=== PATIENT | female | born 1975 | race Caucasian/White ===

== ENCOUNTER 2019-05-04 08:59 | Day surgery (SDC) | payer BC, MEDICAID ==
[~2019-05-04] VITALS: Ht 165.1 cm; Wt 71.3 kg
[2019-05-04 09:44] VITALS: Ht 165.1 cm; Wt 71.3 kg
[2019-05-04] MEDS ORDERED: INHALER (09:49)
[2019-05-04] MEDS ORDERED: IBUPROFEN (09:49)
[2019-05-04 10:01] VITALS: BP 138/73; RESP 27
--- NOTE | 2019-05-04 10:02 | PREAC ---
Date/Time of Note Date/Time of Note DATE: 05/04/19 TIME: 10:00 Anesthesia Eval and Record Evaluation Time Pre-Procedure Interview DATE: 05/04/19 TIME: 10:00 Age 44 Sex female NPO: 8 hrs Preoperative diagnosis Abdominal Pain, bleeding Planned procedure EGD, Colonoscopy Past Medical History Past Medical History: Includes Pulm: Asthma Surgery & Anesthesia Issues No known issue Meds Anticoagulation: No Beta Libby within 24 hr: No Reason Beta Libby not given: Pt. not on B-Libby Reported Medications [Ibuprofen] No Conflict Check 05/04/19 [Inhaler] No Conflict Check 05/04/19 Meds reviewed: Yes Allergies Coded Allergies: Penicillins (Verified Allergy, Severe, SHORTNESS OF BREATH, SWOLLEN EYES, 10/07/11) Allergies Reviewed: Yes Labs/Studies Labs Reviewed: Reviewed by anesthesiologist test: N/A Studies: ECG (N/A), CXR (n/a) Pre-procedure Exam Airway: Adequate mouth opening, Adequate thyromental dist Mallampati: Mallampati II Teeth: Normal Lung: Normal Heart: Normal ASA Physical Status ASA physical status: 2 Emergency: None Planned Anesthetic General/MAC: MAC Planned Pain Management Parenteral pain med Pre-operative Attestations Prior to commencing anesthesia and surgery, the patient was re-evaluated, there was verification of: *The patient's identity *The results of appropriate recent lab work and preoperative vital signs *The above evaluation not changing prior to induction *Anesthetic plan, risk benefits, alternative and complications discussed with patient/family; questions answered; patient/family understands, accepts and wishes to proceed. ITALO RAMSAY MD May 04, 2019 10:02
--- NOTE | 2019-05-04 10:37 | PAC ---
Date/Time of Note Date/Time of Note DATE: 05/04/19 TIME: 10:37 Post-Anesthesia Notes Post-Anesthesia Note Last documented vital signs T: 98.0 Activity: WNL Respiratory function: WNL Cardiovascular function: WNL Mental status: Baseline Pain reasonably controlled: Yes Hydration appropriate: Yes Nausea/Vomiting absent: Yes ITALO RAMSAY MD May 04, 2019 10:37
[2019-05-04] MEDS ORDERED: PROPOFOL 60 ML ONE (10:39)
[2019-05-04 11:13] VITALS: BP 129/71; RESP 20
== END 2019-05-04 14:05 | disposition home or self-care (01) ==
LOC: GIL 08:59
PROVIDERS: ATTEND Internal Medicine Gastroenterology
DX: K92.1 Melena (principal); K64.9 Unspecified hemorrhoids; K44.9 Diaphragmatic hernia without obstruction or gangrene; K25.7 Chronic gastric ulcer without hemorrhage or perforation; J45.909 Unspecified asthma, uncomplicated
CPT/HCPCS: 43239; 45378; 84703; 88305; 88312; Z7610